=== PATIENT | female | born 1940 | race Caucasian/White ===

== ENCOUNTER 2017-07-18 04:40 | Emergency (ER) | payer MEDICARE, MEDICAID ==
[~2017-07-18] VITALS: Ht 165.1 cm; Wt 72.6 kg
[2017-07-18 04:40] VITALS: BP_SYST 151
[~2017-07-18 04:40] MED LIST: COREG; CRESTOR; DIOVAN; JANUMET; METFORMIN; METHOTREXATE; WARFARIN; ZETIA
--- NOTE | 2017-07-18 04:40 | NUR ---
Patient to ER bed 7 to gown for evaluation. Side rails up. Report given to ALBINA SADLER.
--- NOTE | 2017-07-18 04:42 | NUR ---
Pt states having headache for approximately 5 days prior to ER visit, states having dizziness for approximately 2 days prior to ER visit. Pt denies any head injury, denies SOB at this time. Pt denies double vision at this time. Eyes PERRL bilaterally. Pt denies any other complaints.
--- NOTE | 2017-07-18 04:50 | NUR ---
ER Dr. Villasenor at bedside examining patient.
[2017-07-18] MEDS ORDERED: ACETAMINOPHEN 500 MG TABLET PO ONE (05:00)
[2017-07-18] MEDS ORDERED: KETOROLAC TROMETHAMINE 30 MG VIAL IVP ONE (05:15)
[2017-07-18 05:28] LABS: HEMATOCRIT 38.8 % (36-48); HEMOGLOBIN 12.7 g/dL (12.0-16.0); RED BLOOD CELL COUNT(AUTO) 4.28 MIL/uL (4.2-6.2); WHITE BLOOD COUNT (AUTO) 8.9 K/uL (4.8-10.8)
[2017-07-18 05:29] LABS: BASOPHILS % (AUTO) 0.9 % (0.0-2.0); EOSINOPHILS % (AUTO) 0.1 % (0.0-4.0); LYMPHOCYTES # (AUTO) 2.4 K/uL (1.0-5.5); LYMPHOCYTES % (AUTO) 27.4 % (20.5-51.5); MEAN CORPUSCULAR HEMOGLOBIN 30 pg (27-31); MEAN CORPUSCULAR HGB CONC 33 % (32-36); MEAN CORPUSCULAR VOLUME 91 fL (79.0-98.0); MONOCYTES # (AUTO) 0.4 K/uL (0.0-1.0); MONOCYTES % (AUTO) 4.8 % (1.7-9.3); NEUTROPHILS % (AUTO) 66.8 % (40.0-70.0); PLATELET COUNT (AUTO) 174 K/uL (130-430); RED CELL DISTRIBUTION WIDTH 14.6 % (9.0-15.0)
[2017-07-18 05:30] LABS: BASOPHILS # (AUTO) 0.1 K/uL (0.0-0.2)
[2017-07-18 05:51] LABS: CALCIUM 8.5 mg/dL (8.4-11.0); POTASSIUM 4.5 mmol/L (3.5-5.1)
[2017-07-18 05:53] LABS: TOTAL BILIRUBIN 0.7 mg/dL (0.0-1.0)
--- NOTE | 2017-07-18 06:30 | NUR ---
Patient stable, no signs of distress noted. Vital signs within therapeutic range. Will continue to monitor.
[2017-07-18 06:51] LABS: ALANINE AMINOTRANSFERASE 16 U/L (12-78); ALBUMIN 3.6 g/dL (3.4-4.8); ASPARTATE AMINOTRANSFERASE 20 U/L (10-37); CHLORIDE 103 mmol/L (98-107); CREATININE 0.86 mg/dL (0.55-1.30); GLUCOSE 121 mg/dL (70-99); UREA NITROGEN, BLOOD 21 mg/dL (8-21)
--- NOTE | 2017-07-18 06:52 | NUR ---
Patient states she will call sister in law for transport home. Pt states she will wait in waiting room after discharge. Pt stable, no signs of distress noted. Patient ambulatory with cane and with steady gait.
[2017-07-18 06:53] VITALS: BP_SYST 122
--- NOTE | 2017-07-18 06:53 | NUR ---
Patient given written and verbal discharge instructions and verbalizes understanding. ER MD discussed with patient the results and treatment provided. Patient in stable condition. ID arm band removed. IV catheter removed intact and dressing applied, no active bleeding. Rx of Motrin given. Patient educated on pain management and to follow up with PMD. Pain Scale 0/10. Opportunity for questions provided and answered.
[2017-07-18 06:55] LABS: ANION GAP 7 (5-15); SODIUM SERUM 135 mmol/L (136-145)
== END 2017-07-18 06:53 | disposition home or self-care (01) ==
LOC: SED 04:40
DX: R51 Headache (principal); R42 Dizziness and giddiness; I10 Essential (primary) hypertension; E11.9 Type 2 diabetes mellitus without complications; I48.91 Unspecified atrial fibrillation; Z95.0 Presence of cardiac pacemaker
CPT/HCPCS: 36415; 70450; 80053; 85025; 96374; 99285; J1885

== ENCOUNTER 2021-05-23 08:59 | Outpatient (CLI) | payer MEDICARE, MEDICAID | END 2021-05-23 20:37 | disposition home or self-care (01) | LOC: SUS 08:59 | PROVIDERS: ATTEND Family Medicine | DX: I12.9 Hypertensive chronic kidney disease with stage 1 through stage 4 chronic kidney disease, or unspecified chronic kidney disease (principal); N18.30 Chronic kidney disease, stage 3 unspecified; R80.9 Proteinuria, unspecified | CPT/HCPCS: 72072-TC; 76770 ==

== ENCOUNTER 2022-07-29 08:32 | Outpatient (CLI) | payer MEDICARE, MEDICAID | END 2022-07-29 20:39 | disposition home or self-care (01) | LOC: SUS 08:32 | PROVIDERS: ATTEND Family Medicine | DX: R06.02 Shortness of breath (principal); J20.9 Acute bronchitis, unspecified; I70.0 Atherosclerosis of aorta; I65.21 Occlusion and stenosis of right carotid artery; R10.9 Unspecified abdominal pain; Z95.0 Presence of cardiac pacemaker | CPT/HCPCS: 71046-TC ==

== ENCOUNTER 2022-08-03 13:58 | Inpatient (IN) | payer MEDICAID, MEDICARE ==
[~2022-08-03] VITALS: Ht 167.6 cm; Wt 72.6 kg
[2022-08-03 14:02] VITALS: BP_SYST 140
[2022-08-03 16:30] LABS: BILIRUBIN,URINE NEGATIVE (NEGATIVE); CLARITY/URINE SL CLOUDY (CLEAR); COLOR,URINE YELLOW (YELLOW); GLUCOSE,URINE NEGATIVE (NEGATIVE); KETONES,URINE NEGATIVE (NEGATIVE); LEUKOCYTE ESTERASE ,URINE 2+ (NEGATIVE); NITRITE, URINE POSITIVE (NEGATIVE); PH,URINE 5.5 (5.0-8.0); PROTEIN URINE NEGATIVE (NEGATIVE); UROBILINOGEN,URINE 0.2 (0.2-1.0)
[2022-08-03 16:39] LABS: BLOOD, URINE TRACE (NEGATIVE)
[2022-08-03 16:52] LABS: HEMATOCRIT 34.9 % (36-48); HEMOGLOBIN 11.3 g/dL (12.0-16.0); MEAN CORPUSCULAR HEMOGLOBIN 29 pg (27-31); MEAN CORPUSCULAR HGB CONC 33 % (32-36); MEAN CORPUSCULAR VOLUME 89 fL (79.0-98.0); PLATELET COUNT (AUTO) 164 K/uL (130-430); RED CELL DISTRIBUTION WIDTH 15.5 % (9.0-15.0); WHITE BLOOD COUNT (AUTO) 10.8 K/uL (4.8-10.8)
[2022-08-03 16:52] LABS: BACTERIA,URINE MANY /HPF (None Seen); MUCUS,URINE None Seen /LPF (None Seen); RBC,URINE 0-3 /HPF (0-3); WBC,URINE 50-80 /HPF (0-3)
[2022-08-03 17:12] LABS: ANION GAP 10 (5-15); CHLORIDE 114 mmol/L (98-107); CREATININE 0.62 mg/dL (0.55-1.30); GLUCOSE 83 mg/dL (70-99); SODIUM SERUM 145 mmol/L (136-145); UREA NITROGEN, BLOOD 18 mg/dL (8-21)
[2022-08-03 17:14] LABS: BAND % (MANUAL) 0 % (0-6); BASOPHILS % (MANUAL) 0 % (0-2); EOSINOPHILS % (MANUAL) 1 % (0-7); MONOCYTES % (MANUAL) 5 % (0-11)
[2022-08-03 17:16] LABS: LYMPHOCYTES % (MANUAL) 51 % (20-46)
[2022-08-03 17:17] LABS: ALANINE AMINOTRANSFERASE 24 U/L (12-78); ALBUMIN 2.2 g/dL (3.4-4.8); ASPARTATE AMINOTRANSFERASE 19 U/L (10-37); TOTAL BILIRUBIN 0.3 mg/dL (0.0-1.0)
[2022-08-03 17:25] LABS: POTASSIUM 2.9 mmol/L (3.5-5.1)
[2022-08-03 17:26] LABS: CALCIUM 6.3 mg/dL (8.4-11.0)
[2022-08-03] MEDS ORDERED: KCL 20 mEq in 100 mL (PREMIX) 100 ML IV ONE (18:15)
[2022-08-03] MEDS ORDERED: CALCIUM GLUCONATE 1 GM in NS 100 ML IV ONE (18:15)
[2022-08-03] MEDS ORDERED: PROP60CA40 PO (18:20)
[2022-08-03] MEDS ORDERED: AMIO200T66 PO (18:20)
[2022-08-03] MEDS ORDERED: VALS160T2 PO (18:21)
[2022-08-03] MEDS ORDERED: APIX5TAB PO (18:24)
[2022-08-03] MEDS ORDERED: SERT-436 PO (18:24)
[2022-08-03] MEDS ORDERED: ROSU20TA2 PO (18:26)
[2022-08-03] MEDS ORDERED: PRIM50TA27 PO (18:26)
[2022-08-03] MEDS ORDERED: PRED5TAB PO (18:27)
[2022-08-03] MEDS ORDERED: HYDR200T80 PO (18:28)
[2022-08-03] MEDS ORDERED: VITD400 PO (18:28)
[2022-08-03] MEDS ORDERED: VITD2000 PO (18:29)
[2022-08-03] MEDS ORDERED: POTASSIUM CHLORIDE 20 MEQ TAB.PRT.SR PO PRN (18:30)
[2022-08-03] MEDS ORDERED: DEXTROSE 50% JECT 50 ML DISP.SYRIN IVP PRN (18:30)
[2022-08-03] MEDS ORDERED: ACETAMINOPHEN 325 MG TABLET PO PRN (18:30)
[2022-08-03] MEDS ORDERED: MAGNESIUM SULFATE 50 ML IV PRN (18:30)
[2022-08-03] MEDS ORDERED: DOCUSATE SODIUM 100 MG CAPSULE PO PRN (18:30)
[2022-08-03] MEDS ORDERED: POTASSIUM CHLORIDE 20 MEQ TAB.PRT.SR PO ONE (18:30)
[2022-08-03] MEDS ORDERED: MORPHINE 2 MG/ML INJ. SYRINGE IVP PRN ×2 (18:30)
[2022-08-03] MEDS ORDERED: MUPIROCIN 2% TOPICAL OINTMENT 22 GM NS PRN (18:30)
[2022-08-03] MEDS ORDERED: ONDANSETRON HCL 4 MG/2 ML VIAL IVP PRN (18:30)
[2022-08-03] MEDS ORDERED: cefTRIAXone 1 GM in D5W 50 ML IV ONE (18:30)
[2022-08-03] MEDS ORDERED: ZOLPIDEM TARTRATE 5 MG TABLET PO PRN (18:30)
[2022-08-03] MEDS ORDERED: LORazepam 1 MG TABLET PO PRN (18:45)
[2022-08-03] MEDS ORDERED: FUROSEMIDE 40 MG/4 ML VIAL IVP ONE (19:15)
[2022-08-03] MEDS ORDERED: cefTRIAXone 1 GM VIAL ONE ×2 (19:43→23:09)
[2022-08-03] MEDS ORDERED: CALCIUM GLUCONATE 1 GM/10 ML VIAL ONE (19:43)
[2022-08-03] MEDS ORDERED: FUROSEMIDE 40 MG/4 ML VIAL ONE (20:08)
[2022-08-03 22:16] VITALS: BP_SYST 135
[2022-08-03] MEDS: APIXABAN 2.5 MG TABLET PO SCH (23:04)
[2022-08-04 05:16] VITALS: BP_SYST 135
[2022-08-04 06:47] LABS: BASOPHILS % (AUTO) 0.3 % (0.0-2.0); EOSINOPHILS # (AUTO) 0.1 K/uL (0.0-0.4); EOSINOPHILS % (AUTO) 1.2 % (0.0-4.0); HEMATOCRIT 34.2 % (36-48); HEMOGLOBIN 11.4 g/dL (12.0-16.0); LYMPHOCYTES # (AUTO) 5.2 K/uL (1.0-5.5); LYMPHOCYTES % (AUTO) 52.9 % (20.5-51.5); MEAN CORPUSCULAR HEMOGLOBIN 30 pg (27-31); MEAN CORPUSCULAR HGB CONC 33 % (32-36); MEAN CORPUSCULAR VOLUME 89 fL (79.0-98.0); MONOCYTES # (AUTO) 0.5 K/uL (0.0-1.0); MONOCYTES % (AUTO) 5.4 % (1.7-9.3); NEUTROPHILS % (AUTO) 40.2 % (40.0-70.0); PLATELET COUNT (AUTO) 155 K/uL (130-430); RED BLOOD CELL COUNT(AUTO) 3.84 MIL/uL (4.2-6.2); RED CELL DISTRIBUTION WIDTH 15.2 % (9.0-15.0); WHITE BLOOD COUNT (AUTO) 9.9 K/uL (4.8-10.8)
[2022-08-04 06:56] LABS: ANION GAP 6 (5-15); CALCIUM 8.6 mg/dL (8.4-11.0); CHLORIDE 105 mmol/L (98-107); CREATININE 0.96 mg/dL (0.55-1.30); GLUCOSE 118 mg/dL (70-99); POTASSIUM 3.8 mmol/L (3.5-5.1); SODIUM SERUM 141 mmol/L (136-145); UREA NITROGEN, BLOOD 20 mg/dL (8-21)
[2022-08-04 08:00] VITALS: BP_SYST 129
[2022-08-04] MEDS ORDERED: AMIODARONE HCL 200 MG TABLET PO ONE (09:00)
[2022-08-04] MEDS ORDERED: FUROSEMIDE 40 MG TABLET PO ONE (09:00)
[2022-08-04] MEDS ORDERED: FUROSEMIDE 40 MG/4 ML VIAL IVP SCH (09:00)
[2022-08-04] MEDS: PROPRANOLOL HCL (INDERAL LA 60MG) PO SCH (09:00)
[2022-08-04] MEDS ORDERED: AMIODARONE HCL 200 MG TABLET PO SCH (09:00)
[2022-08-04] MEDS: ATORVASTATIN 20 MG TABLET PO SCH (09:47)
[2022-08-04] MEDS: APIXABAN 2.5 MG TABLET PO SCH ×2 (09:54→21:37)
[2022-08-04 12:00] VITALS: BP_SYST 128
[2022-08-04] MEDS: INSULIN LISPRO SLIDING SCALE 100 UNITS/ML VIAL (humaLOG) SUBCUT PRN (13:16)
[2022-08-04 16:00] VITALS: BP_SYST 131
[2022-08-04] MEDS ORDERED: cefTRIAXone 1 GM IVPB PREMIX 50 ML IV SCH ×2 (18:00)
[2022-08-04 20:00] VITALS: BP_SYST 136
[2022-08-04] MEDS ORDERED: PRIMIDONE 250 MG TABLET PO SCH (21:00)
[2022-08-05] VITALS: BP_SYST 127
[2022-08-05 07:02] LABS: BASOPHILS % (AUTO) 0.3 % (0.0-2.0); EOSINOPHILS # (AUTO) 0.1 K/uL (0.0-0.4); EOSINOPHILS % (AUTO) 1.1 % (0.0-4.0); HEMATOCRIT 36.3 % (36-48); HEMOGLOBIN 12.2 g/dL (12.0-16.0); LYMPHOCYTES # (AUTO) 4.5 K/uL (1.0-5.5); LYMPHOCYTES % (AUTO) 46.6 % (20.5-51.5); MEAN CORPUSCULAR HEMOGLOBIN 30 pg (27-31); MEAN CORPUSCULAR HGB CONC 34 % (32-36); MEAN CORPUSCULAR VOLUME 89 fL (79.0-98.0); MONOCYTES # (AUTO) 0.5 K/uL (0.0-1.0); MONOCYTES % (AUTO) 5.4 % (1.7-9.3); NEUTROPHILS # (AUTO) 4.5 K/uL (1.8-7.7); NEUTROPHILS % (AUTO) 46.6 % (40.0-70.0); PLATELET COUNT (AUTO) 162 K/uL (130-430); RED CELL DISTRIBUTION WIDTH 15.6 % (9.0-15.0); WHITE BLOOD COUNT (AUTO) 9.7 K/uL (4.8-10.8)
[2022-08-05 07:12] LABS: ALANINE AMINOTRANSFERASE 27 U/L (12-78); ALBUMIN 2.9 g/dL (3.4-4.8); ANION GAP 7 (5-15); ASPARTATE AMINOTRANSFERASE 29 U/L (10-37); CALCIUM 8.5 mg/dL (8.4-11.0); CHLORIDE 104 mmol/L (98-107); CREATININE 0.96 mg/dL (0.55-1.30); GLUCOSE 132 mg/dL (70-99); POTASSIUM 3.5 mmol/L (3.5-5.1); SODIUM SERUM 141 mmol/L (136-145); THYROID STIMULATING HORMONE 3.16 uIu/mL (0.36-3.74); TOTAL BILIRUBIN 0.4 mg/dL (0.0-1.0); UREA NITROGEN, BLOOD 20 mg/dL (8-21)
[2022-08-05 08:00] VITALS: BP_SYST 122
[2022-08-05] MEDS ORDERED: FUROSEMIDE 40 MG TABLET PO SCH (09:00)
[2022-08-05] MEDS ORDERED: AMIODARONE HCL 200 MG TABLET PO SCH (09:00)
[2022-08-05] MEDS: PROPRANOLOL HCL (INDERAL LA 60MG) PO SCH (09:00)
[2022-08-05] MEDS ORDERED: predniSONE 5 MG TABLET PO SCH (09:00)
[2022-08-05] MEDS: ATORVASTATIN 20 MG TABLET PO SCH (09:04)
[2022-08-05] MEDS: APIXABAN 2.5 MG TABLET PO SCH (09:06)
[2022-08-05 10:55] LABS: TRIGLYCERIDES 64 mg/dL (30-150)
[2022-08-05 10:56] LABS: CHOLESTEROL 150 mg/dL (<200); HDL CHOLESTEROL 81 mg/dL (>55); LDL CHOLESTEROL 63 mg/dL (<100)
[2022-08-05] MEDS ORDERED: NITR-85 PO (11:29)
[2022-08-05] MEDS ORDERED: FAMO20TA8 PO (11:29)
[2022-08-05] MEDS ORDERED: APIX2.5T PO (11:30)
[2022-08-05] MEDS ORDERED: FURO-150 PO (11:31)
[2022-08-05 11:43] VITALS: BP_SYST 136
[2022-08-05 11:45] VITALS: BP_SYST 116
[2022-08-05 11:51] VITALS: BP_SYST 136
[2022-08-05] MEDS: INSULIN LISPRO SLIDING SCALE 100 UNITS/ML VIAL (humaLOG) SUBCUT PRN (12:42)
[2022-08-06] MEDS ORDERED: FUROSEMIDE 40 MG TABLET PO SCH (09:00)
== END 2022-08-05 14:00 | disposition home or self-care (01) | DRG 194 ==
LOC: SED 16:39 → STU 18:25 → SMU 08-04 03:59 → STU 08-04 23:23
PROVIDERS: ADMIT Family Medicine; ATTEND Family Medicine
DX: I11.0 Hypertensive heart disease with heart failure (principal); J96.01 Acute respiratory failure with hypoxia; E44.0 Moderate protein-calorie malnutrition; E83.51 Hypocalcemia; D64.9 Anemia, unspecified; E78.5 Hyperlipidemia, unspecified; E11.9 Type 2 diabetes mellitus without complications; I48.0 Paroxysmal atrial fibrillation; Z79.01 Long term (current) use of anticoagulants; I50.21 Acute systolic (congestive) heart failure; N39.0 Urinary tract infection, site not specified; E87.6 Hypokalemia; M06.9 Rheumatoid arthritis, unspecified; M19.90 Unspecified osteoarthritis, unspecified site; Z20.822 Contact with and (suspected) exposure to COVID-19; Z96.642 Presence of left artificial hip joint; Z74.01 Bed confinement status; Z90.49 Acquired absence of other specified parts of digestive tract; Z95.0 Presence of cardiac pacemaker; Z99.3 Dependence on wheelchair; Z79.899 Other long term (current) drug therapy
CPT/HCPCS: 36415; 71045; 71250-TC; 76376; 80048; 80053; 80061; 81000; 82962; 83036; 83605; 83735; 83880; 84443; 84484; 85007; 85025; 85027; 87040; 87086; 93005; 93306; 96365; 99285; G0378; J0610; J0696; J1940; J3480; J7512

== ENCOUNTER 2022-09-04 03:18 | Inpatient (IN) | payer MEDICAID, MEDICARE ==
[~2022-09-04] VITALS: Ht 152.4 cm; Wt 66.7 kg
[2022-09-04] VITALS (7 sets, daily range): BP systolic 114–131
[~2022-09-04 03:18] MED LIST changes: +AMIO200T66 PO; +APIX2.5T PO; -COREG; -CRESTOR; -DIOVAN; +FAMO20TA8 PO; +FURO-150 PO; +HYDR200T80 PO; -JANUMET; -METFORMIN; -METHOTREXATE; +NITR-85 PO; +PRIM50TA27 PO; +PROP60CA40 PO; +ROSU20TA2 PO; +SERT-436 PO; +VITD400 PO; -WARFARIN; -ZETIA
--- NOTE | 2022-09-04 03:25 | NUR ---
PT BIB BLS TRANSPORT C/O SOB, MILD ABDOMINAL PAIN LAST NIGHT. PER REPORT PT IS HAVING FLU LIKE STMPTOMS X1 WK. COUGH MEDICATION WAS GIVEN EARLIER LAST NIGHT. PMH;HTN,DM,PACEMAKER, LT HIP SURGERY
--- NOTE | 2022-09-04 03:50 | NUR ---
Placed in room 3 . Placed on pvc monitor, blood pressure machine and pulse oximeter. To gown for exam. Side rails up. Report given to Gill SADLER.
--- NOTE | 2022-09-04 04:00 | NUR ---
RAD at bedside for imaging.
--- NOTE | 2022-09-04 05:00 | NUR ---
ER at bedside examining patient.
--- NOTE | 2022-09-04 05:04 | NUR ---
Covid/Influenza swabs collected and sent to lab.
[2022-09-04 05:11] LABS: ANION GAP 7 (5-15); CALCIUM 7.7 mg/dL (8.4-11.0); CHLORIDE 105 mmol/L (98-107); CREATININE 0.96 mg/dL (0.55-1.30); GLUCOSE 123 mg/dL (70-99); POTASSIUM 3.7 mmol/L (3.5-5.1); UREA NITROGEN, BLOOD 17 mg/dL (8-21)
[2022-09-04 05:19] LABS: ALANINE AMINOTRANSFERASE 22 U/L (12-78); ALBUMIN 2.9 g/dL (3.4-4.8); ASPARTATE AMINOTRANSFERASE 24 U/L (10-37); TOTAL BILIRUBIN 0.3 mg/dL (0.0-1.0)
[2022-09-04] MEDS ORDERED: FUROSEMIDE 40 MG/4 ML VIAL IVP ONE (05:30)
[2022-09-04] MEDS ORDERED: NITROGLYCERIN 1 INCH (GM) OINT. TP ONE (05:30)
[2022-09-04] MEDS ORDERED: cefTRIAXone 1 GM in D5W 50 ML IV ONE (05:30)
[2022-09-04] MEDS ORDERED: DOXYCYCLINE HYCLATE 100 MG in D5W 100 ML IV ONE (05:30)
[2022-09-04] MEDS ORDERED: DOXYCYCLINE HYCLATE 100 MG VIAL IV ONE (05:35)
[2022-09-04] MEDS ORDERED: cefTRIAXone 1 GM VIAL ONE (05:35)
--- NOTE | 2022-09-04 05:38 | NUR ---
Admit bed requested Patient will be admitted to care of Alex Torres Admitted to TELE unit. Diagnosis CHF EXACERBATION Inpatient (Yes or No) YES Observation (Yes or No) NO Orientation concerns or request close to nursing station (Yes or No) NO Covid Status PENDING On vent or bipap NO Isolation requirements NO Needs a sitter NO From Home (Yes or if No enter name of facility) YES Requires Dialysis (Yes or No) NO Med Rec Completed (Yes of No) PENDING
[2022-09-04 05:53] LABS: CORRECTED WHITE BLOOD COUNT 9.7 K/uL (4.5-11.0); HEMATOCRIT 33.2 % (36-48); HEMOGLOBIN 11.2 g/dL (12.0-16.0); RED BLOOD CELL COUNT(AUTO) 3.78 MIL/uL (4.2-6.2); WHITE BLOOD COUNT (AUTO) 9.7 K/uL (4.8-10.8)
[2022-09-04 05:54] LABS: BASOPHILS % (AUTO) 0.5 % (0.0-2.0); EOSINOPHILS % (AUTO) 1.2 % (0.0-4.0); LYMPHOCYTES # (AUTO) 4.8 K/uL (1.0-5.5); LYMPHOCYTES % (AUTO) 49.4 % (20.5-51.5); MEAN CORPUSCULAR HEMOGLOBIN 30 pg (27-31); MEAN CORPUSCULAR HGB CONC 34 % (32-36); MEAN CORPUSCULAR VOLUME 88 fL (79.0-98.0); MONOCYTES % (AUTO) 4.6 % (1.7-9.3); NEUTROPHILS # (AUTO) 4.3 K/uL (1.8-7.7); NEUTROPHILS % (AUTO) 44.3 % (40.0-70.0); PLATELET COUNT (AUTO) 152 K/uL (130-430); RED CELL DISTRIBUTION WIDTH 15.3 % (9.0-15.0)
[2022-09-04 05:55] LABS: BASOPHILS # (AUTO) 0.1 K/uL (0.0-0.2); EOSINOPHILS # (AUTO) 0.1 K/uL (0.0-0.4); MONOCYTES # (AUTO) 0.4 K/uL (0.0-1.0)
--- NOTE | 2022-09-04 06:01 | NUR ---
# 22 gauge angiocath placed to R AC. Use of asceptic technique. Opsite placed over site. Blood return noted. Flushed with 10 cc of normal saline. No evidence of infiltration noted. Patient tolerated well.
[2022-09-04] MEDS ORDERED: D5/0.45 NS 1,000 ML IV SCH (06:45)
--- NOTE | 2022-09-04 07:25 | NUR ---
Opening Note: Report rcvd from outgoing NOC RN, all cares assumed.
--- NOTE | 2022-09-04 07:49 | NUR ---
Patient stable in no acute distress and or discomfort, bed low and locked for safety.
--- NOTE | 2022-09-04 08:12 | NUR ---
Patient will be admitted to care of Dr. Alonso. Admitted to Tele unit. Will go to room 110B. Belongings list completed. Complete and up to date summary report printed. SBAR report to be given at bedside with opportunity for questions.
--- NOTE | 2022-09-04 08:25 | NUR ---
Patient transferred to unit in stable condition.
--- NOTE | 2022-09-04 08:26 | NUR ---
CONSULTATION PAGED REASON FOR CONSULTATION:CHF WAS CONSULT CALLED?Y PERSON WHO WAS NOTIFIED:RUBIO CONSULTING PHYSICIAN:ALCIDES DAVIDSON PRESSED OR BLOWN GLASS WORKER SPECIALTY:CARDIO PRESSED OR BLOWN GLASS WORKER PHONE NUMBER:[phone] REQUESTING PHYSICIAN:DR.[facility]
--- NOTE | 2022-09-04 08:44 | NUR ---
Scheduled IVP medication given per order. Patient stable at this time.
[2022-09-04] MEDS ORDERED: FUROSEMIDE 40 MG/4 ML VIAL IVP SCH (09:00)
--- NOTE | 2022-09-04 09:10 | NUR ---
Patient stable; resting comfortably in bed with Dr. Reyes at bedside.
[2022-09-04] MEDS ORDERED: MAGNESIUM SULFATE 50 ML IV PRN (09:15)
[2022-09-04] MEDS ORDERED: ZOLPIDEM TARTRATE 5 MG TABLET PO PRN (09:15)
[2022-09-04] MEDS ORDERED: NALOXONE HCL 0.4 MG/ML AMP (NARCAN) IVP PRN ×2 (09:15)
[2022-09-04] MEDS ORDERED: LORazepam 2 MG/ML VIAL IVP PRN (09:15)
[2022-09-04] MEDS ORDERED: DOCUSATE SODIUM 100 MG CAPSULE PO PRN (09:15)
[2022-09-04] MEDS ORDERED: POTASSIUM CHLORIDE 20 MEQ TAB.PRT.SR PO PRN (09:15)
[2022-09-04] MEDS ORDERED: MUPIROCIN 2% TOPICAL OINTMENT 22 GM NS PRN (09:15)
[2022-09-04] MEDS ORDERED: ACETAMINOPHEN 325 MG TABLET PO PRN (09:15)
[2022-09-04] MEDS ORDERED: ONDANSETRON HCL 4 MG/2 ML VIAL IVP PRN (09:15)
[2022-09-04] MEDS ORDERED: MORPHINE 2 MG/ML INJ. SYRINGE IVP PRN ×2 (09:15)
--- NOTE | 2022-09-04 09:17 | NUR ---
Patient resting comfortably in bed with Dr. Oliveira at bedside.
--- NOTE | 2022-09-04 09:31 | NUR ---
CONSULTATION PAGED REASON FOR CONSULTATION:SEVERE EPIGASTRIC PAIN WAS CONSULT CALLED?Y PERSON WHO WAS NOTIFIED:[employer] CONSULTING PHYSICIAN:ANITA MUNIZ WEIGHT INSPECTOR SPECIALTY:GI WEIGHT INSPECTOR PHONE NUMBER:[phone] REQUESTING PHYSICIAN:DR.[facility]ARGAVI
[2022-09-04] MEDS: METOCLOPRAMIDE HCL 10 MG/2 ML VIAL IVP SCH ×2 (11:34→17:38)
--- NOTE | 2022-09-04 11:34 | NUR ---
Scheduled medication given per order. Patient stable with daughter at bedside.
[2022-09-04] MEDS ORDERED: VITD2000 PO (13:42)
[2022-09-04] MEDS ORDERED: VALS160T2 PO (13:44)
[2022-09-04] MEDS ORDERED: PRED2.5T4 PO (13:45)
[2022-09-04] MEDS ORDERED: PRIM50TA27 PO (13:45)
[2022-09-04] MEDS ORDERED: MULT-1117 PO (13:45)
--- NOTE | 2022-09-04 13:45 | NUR ---
Patient stable; resting comfortably in bed with daughter at bedside.
[2022-09-04] MEDS ORDERED: APIX5TAB4 PO (13:46)
--- NOTE | 2022-09-04 16:05 | NUR ---
Patient stable; asleep at this time.
[2022-09-04] MEDS: SERTRALINE HCL 50 MG TABLET PO SCH (17:37)
[2022-09-04] MEDS: PRIMIDONE 50 MG TABLET PO SCH (17:37)
--- NOTE | 2022-09-04 17:38 | NUR ---
Scheduled medications given per order. Patient eating dinner at this time.
--- NOTE | 2022-09-04 18:50 | NUR ---
Patient resting in bed with no distress noted and family member at bedside. Patient stable throughout shift.
--- NOTE | 2022-09-04 19:15 | NUR ---
change of shift.pt.presents quiescent affect;calm,resting.no c/o pain,nausea.pt.presents iv access location rt.wrist intact. iv lock.general status stable.respiratory status stable;unlabored@room air.call light/telephone w/in access of the pt.
--- NOTE | 2022-09-04 20:00 | NUR ---
pt.assessed.v/s assessed values wnl.no c/o pain,nausea.pt.apprised that snacks/beverages are available w/in the shift. no requests posited@this hour.pt.assessed for cleanliness.pt.repositioned.call light/telephone placed w/in access of the pt.
[2022-09-04] MEDS: FUROSEMIDE 20 MG/2 ML VIAL IVP SCH (20:17)
[2022-09-04] MEDS: AMIODARONE HCL 200 MG TABLET PO SCH (20:18)
[2022-09-04] MEDS ORDERED: APIXABAN 2.5 MG TABLET PO SCH (21:00)
--- NOTE | 2022-09-04 21:00 | NUR ---
2100p medications administered.pt.capable to ingest the po medications w/out difficulty.no c/o pain,nausea.no requests posited@this hour.call light/telephone w/in access of the pt.
--- NOTE | 2022-09-04 22:00 | NUR ---
pt.assessed.pt.quiescent.no c/o pain,nausea.no requests posited@this hour.pt.repositioned.call light/telephone placed w/in access of the pt.
--- NOTE | 2022-09-05 | NUR ---
pt.assessed.v/s assessed values wnl.no c/o pain,nausea.no requests posited@this hour.pt.repositioned.call light/telephone placed w/in access of the pt.
--- NOTE | 2022-09-05 01:00 | NUR ---
reglan;ivp administered.iv access intact;patent.
[2022-09-05 01:06] VITALS: BP_SYST 117
[2022-09-05] MEDS: METOCLOPRAMIDE HCL 10 MG/2 ML VIAL IVP SCH ×2 (01:30→09:31)
--- NOTE | 2022-09-05 02:00 | NUR ---
pt.assessed.pt.quiescent.per flacc pain mgx pt.absent facial grimaces/body posturing.pt.repositioned.call light/telephone placed w/in access of the pt.
--- NOTE | 2022-09-05 04:00 | NUR ---
pt.assessed.pt.quiescent.per flacc pain mgx pt.absent facial grimaces/body posturing.pt.assessed for cleanliness. pt.repositioned.call light/telephone placed w/in access of the pt.
[2022-09-05] MEDS ORDERED: cefTRIAXone 1 GM in D5W 50 ML IV SCH (06:00)
[2022-09-05] MEDS: PRIMIDONE 50 MG TABLET PO SCH ×2 (06:14→12:00)
--- NOTE | 2022-09-05 06:27 | NUR ---
pt.assessed,pt.quiescent.per flacc pain mgx pt.absent facial grimaces/body posturing.pt.repositioned.0700a myosline administered.pt.weighed 2/t chf/lasix hx.call light/telephone placed w/in access of the pt.
[2022-09-05 06:45] LABS: BASOPHILS % (AUTO) 0.4 % (0.0-2.0); EOSINOPHILS # (AUTO) 0.1 K/uL (0.0-0.4); EOSINOPHILS % (AUTO) 1.1 % (0.0-4.0); HEMATOCRIT 34.5 % (36-48); HEMOGLOBIN 11.7 g/dL (12.0-16.0); LYMPHOCYTES # (AUTO) 4.3 K/uL (1.0-5.5); LYMPHOCYTES % (AUTO) 56.7 % (20.5-51.5); MEAN CORPUSCULAR HEMOGLOBIN 30 pg (27-31); MEAN CORPUSCULAR HGB CONC 34 % (32-36); MEAN CORPUSCULAR VOLUME 87 fL (79.0-98.0); MONOCYTES # (AUTO) 0.4 K/uL (0.0-1.0); MONOCYTES % (AUTO) 5.9 % (1.7-9.3); NEUTROPHILS # (AUTO) 2.7 K/uL (1.8-7.7); NEUTROPHILS % (AUTO) 35.9 % (40.0-70.0); PLATELET COUNT (AUTO) 143 K/uL (130-430); RED BLOOD CELL COUNT(AUTO) 3.94 MIL/uL (4.2-6.2); RED CELL DISTRIBUTION WIDTH 15.2 % (9.0-15.0); WHITE BLOOD COUNT (AUTO) 7.6 K/uL (4.8-10.8)
[2022-09-05 07:47] LABS: ANION GAP 8 (5-15); CALCIUM 7.5 mg/dL (8.4-11.0); CHLORIDE 103 mmol/L (98-107); CREATININE 0.95 mg/dL (0.55-1.30); GLUCOSE 118 mg/dL (70-99); POTASSIUM 3.5 mmol/L (3.5-5.1); UREA NITROGEN, BLOOD 20 mg/dL (8-21)
[2022-09-05 08:09] VITALS: BP_SYST 113
[2022-09-05] MEDS ORDERED: FUROSEMIDE 20 MG TABLET PO SCH (09:00)
[2022-09-05] MEDS ORDERED: ROSUVASTATIN CALCIUM 5 MG/TAB (CRESTOR) PO SCH (09:00)
[2022-09-05] MEDS: ATORVASTATIN 20 MG TABLET PO SCH (09:19)
[2022-09-05] MEDS: AMIODARONE HCL 200 MG TABLET PO SCH ×2 (09:20→21:00)
[2022-09-05] MEDS: PROPRANOLOL HCL (INDERAL LA 60MG) PO SCH (09:21)
[2022-09-05] MEDS: HYDROXYCHLOROQUINE SULFATE 200 MG TABLET PO SCH (09:21)
[2022-09-05] MEDS: FUROSEMIDE 20 MG/2 ML VIAL IVP SCH ×2 (09:22→21:00)
--- NOTE | 2022-09-05 10:00 | NUR ---
pt kept npo for gastric emptying study.
[2022-09-05 11:26] VITALS: BP_SYST 115
--- NOTE | 2022-09-05 13:00 | NUR ---
Pt still npo for gastric emptying studies.
[2022-09-05 15:28] VITALS: BP_SYST 122
--- NOTE | 2022-09-05 16:27 | NUR ---
Dietitian Recommendations * Consider resuming Cardiac diet w/ Ensure Enlive BID (ONS yields 700 kcal/day, 40 gm protein/day) if/when medically appropriate LP, MS, RD Please refer to Nutrition Assessment for details. Addendum: 09/05/22 at [address] Amended: Links added.
--- NOTE | 2022-09-05 16:37 | NUR ---
pt resting in bed, pt said she is ready for the test.
--- NOTE | 2022-09-05 18:20 | NUR ---
pt is off unit, still in NM.
--- NOTE | 2022-09-05 18:51 | NUR ---
pt is off unit, still in NM.
[2022-09-06 00:18] VITALS: BP_SYST 126
--- NOTE | 2022-09-06 07:30 | NUR ---
OPENING NOTE: PATIENT RESTING IN BED. BREATHING EVEN AND UNLABORED TO O2 AT 2L/NC. DENIES ANY DISCOMFORT AT THIS TIME. FALL AND SAFETY MEASURES REINFORCED. BED LOCKED, ALARM AND IN LOWEST POSITION. CALL LIGHT WITHIN REACH.
[2022-09-06] MEDS: PRIMIDONE 50 MG TABLET PO SCH ×3 (08:07→18:00)
[2022-09-06 08:29] LABS: BASOPHILS % (AUTO) 0.5 % (0.0-2.0); EOSINOPHILS # (AUTO) 0.1 K/uL (0.0-0.4); EOSINOPHILS % (AUTO) 1.2 % (0.0-4.0); HEMATOCRIT 35.6 % (36-48); HEMOGLOBIN 11.9 g/dL (12.0-16.0); LYMPHOCYTES % (AUTO) 58.8 % (20.5-51.5); MEAN CORPUSCULAR HEMOGLOBIN 30 pg (27-31); MEAN CORPUSCULAR HGB CONC 33 % (32-36); MEAN CORPUSCULAR VOLUME 88 fL (79.0-98.0); MONOCYTES # (AUTO) 0.5 K/uL (0.0-1.0); MONOCYTES % (AUTO) 5.7 % (1.7-9.3); NEUTROPHILS # (AUTO) 2.9 K/uL (1.8-7.7); NEUTROPHILS % (AUTO) 33.8 % (40.0-70.0); PLATELET COUNT (AUTO) 160 K/uL (130-430); RED BLOOD CELL COUNT(AUTO) 4.04 MIL/uL (4.2-6.2); RED CELL DISTRIBUTION WIDTH 15.2 % (9.0-15.0); WHITE BLOOD COUNT (AUTO) 8.5 K/uL (4.8-10.8)
[2022-09-06 08:45] LABS: ANION GAP 6 (5-15); CALCIUM 7.5 mg/dL (8.4-11.0); CHLORIDE 104 mmol/L (98-107); CREATININE 0.89 mg/dL (0.55-1.30); GLUCOSE 112 mg/dL (70-99); POTASSIUM 3.4 mmol/L (3.5-5.1); UREA NITROGEN, BLOOD 24 mg/dL (8-21)
[2022-09-06] MEDS: ATORVASTATIN 20 MG TABLET PO SCH (09:26)
[2022-09-06] MEDS: FUROSEMIDE 20 MG/2 ML VIAL IVP SCH ×2 (09:26→21:13)
[2022-09-06] MEDS: PROPRANOLOL HCL (INDERAL LA 60MG) PO SCH (09:27)
[2022-09-06] MEDS: AMIODARONE HCL 200 MG TABLET PO SCH ×2 (09:27→21:15)
--- NOTE | 2022-09-06 09:30 | NUR ---
Dr. Goss at bedside: Dr. Goss spoke to the patient for the EGD and Colonoscopy tomorrow.
[2022-09-06 09:37] VITALS: BP_SYST 112
[2022-09-06] MEDS: HYDROXYCHLOROQUINE SULFATE 200 MG TABLET PO SCH (09:50)
[2022-09-06] MEDS: METOCLOPRAMIDE HCL 10 MG/2 ML VIAL IVP SCH ×2 (09:50→18:01)
--- NOTE | 2022-09-06 12:00 | NUR ---
RN notes: Incontinent care done. Refused due med. C/o abdominal discomfort.
[2022-09-06 12:01] VITALS: BP_SYST 118
[2022-09-06 16:05] VITALS: BP_SYST 115
[2022-09-06] MEDS ORDERED: BISACODYL 5 MG TABLET.DR (DULCOLAX) PO ONE (17:00)
[2022-09-06] MEDS ORDERED: GOLYTELY / COLYTE SOLUTION 4 LITERS PO ONE (18:00)
[2022-09-06] MEDS: SERTRALINE HCL 50 MG TABLET PO SCH (18:02)
--- NOTE | 2022-09-06 18:50 | NUR ---
Closing notes: Patient resting in bed. Started Golyltely. For EGD and Colonoscopy tomorrow. Needs met throughout shift. Family at bedside. Consent signed.
[2022-09-07 00:41] VITALS: BP_SYST 123
[2022-09-07] MEDS: METOCLOPRAMIDE HCL 10 MG/2 ML VIAL IVP SCH ×3 (02:18→17:15)
[2022-09-07 07:34] LABS: BASOPHILS % (AUTO) 0.4 % (0.0-2.0); EOSINOPHILS # (AUTO) 0.1 K/uL (0.0-0.4); EOSINOPHILS % (AUTO) 1.2 % (0.0-4.0); HEMATOCRIT 35.2 % (36-48); HEMOGLOBIN 11.9 g/dL (12.0-16.0); LYMPHOCYTES # (AUTO) 4.8 K/uL (1.0-5.5); LYMPHOCYTES % (AUTO) 55.4 % (20.5-51.5); MEAN CORPUSCULAR HEMOGLOBIN 30 pg (27-31); MEAN CORPUSCULAR HGB CONC 34 % (32-36); MEAN CORPUSCULAR VOLUME 88 fL (79.0-98.0); MONOCYTES # (AUTO) 0.6 K/uL (0.0-1.0); MONOCYTES % (AUTO) 6.5 % (1.7-9.3); NEUTROPHILS # (AUTO) 3.2 K/uL (1.8-7.7); NEUTROPHILS % (AUTO) 36.5 % (40.0-70.0); PLATELET COUNT (AUTO) 171 K/uL (130-430); RED BLOOD CELL COUNT(AUTO) 4.02 MIL/uL (4.2-6.2); RED CELL DISTRIBUTION WIDTH 15.2 % (9.0-15.0); WHITE BLOOD COUNT (AUTO) 8.6 K/uL (4.8-10.8)
[2022-09-07 07:48] LABS: INR 1.1 (0.8-1.2); PROTHROMBIN TIME 11.5 SECS (9.5-12.5)
[2022-09-07 08:00] VITALS: BP_SYST 147
--- NOTE | 2022-09-07 08:00 | NUR ---
Initial Notes patient is AO4. On 2 L O2 via NC. No s.s of distress noted. Breathing is even and nonlabored. IV Patent. Denies pain. Patient remains NPO. Aware of EGD and colonoscopy scheduled today. Consents signed and in chart. Bed locked, alarm in, and at lowest position. Call light within reach.
[2022-09-07 08:10] LABS: ANION GAP 7 (5-15); CALCIUM 7.2 mg/dL (8.4-11.0); CHLORIDE 102 mmol/L (98-107); CREATININE 1.01 mg/dL (0.55-1.30); GLUCOSE 117 mg/dL (70-99); POTASSIUM 3.5 mmol/L (3.5-5.1); UREA NITROGEN, BLOOD 15 mg/dL (8-21)
[2022-09-07] MEDS ORDERED: ATORVASTATIN 20 MG TABLET PO ONE (09:00)
[2022-09-07] MEDS: PRIMIDONE 50 MG TABLET PO SCH ×3 (09:12→18:38)
[2022-09-07] MEDS: PROPRANOLOL HCL (INDERAL LA 60MG) PO SCH (09:13)
[2022-09-07] MEDS: AMIODARONE HCL 200 MG TABLET PO SCH ×2 (09:13→21:12)
[2022-09-07] MEDS: D5NS 1,000 ML IV SCH (09:14)
[2022-09-07] MEDS: HYDROXYCHLOROQUINE SULFATE 200 MG TABLET PO SCH (09:14)
--- NOTE | 2022-09-07 11:00 | NUR ---
Notes Patient left for colonoscopy and EGD.
[2022-09-07] MEDS ORDERED: MIDAZOLAM HCL 5 MG/5 ML VIAL ONE (11:10)
[2022-09-07] MEDS ORDERED: fentaNYL CITRATE/PF 100 MCG/2 ML AMP ONE (11:10)
[2022-09-07 12:25] VITALS: BP_SYST 113
--- NOTE | 2022-09-07 12:30 | NUR ---
Notes Patient back on unit. NO s.s of distress noted. On room air, breathing is even and nonlabored. VSS. IVF running. IV patent. Patient denies pain. Son at bedside. Call light within reach and Safety precautions in place. Addendum: 09/07/22 at 2003 by Monserrat Briceño LVN Notes Patient back on unit. NO s.s of distress noted. On 2L O2 NC, breathing is even and nonlabored. VSS. IVF running. IV patent. Patient denies pain. Son at bedside. Call light within reach and Safety precautions in place.
--- NOTE | 2022-09-07 13:39 | NUR ---
Patient is on service with [facility]-they called requesting an order to resume home health when discharged.
[2022-09-07] MEDS: FUROSEMIDE 20 MG/2 ML VIAL IVP SCH ×2 (13:48→21:00)
--- NOTE | 2022-09-07 16:00 | NUR ---
Notes Patient is resting, eyes closed, appears to be sleeping. No s.s of distress noted. Breathing is even and nonlabored. On 2 L O2 via NC. IVF running. IV patent. Safety precautions in place and call light within reach.
[2022-09-07 16:21] VITALS: BP_SYST 122
--- NOTE | 2022-09-07 18:30 | NUR ---
IV INSERTION NEW IV LINE STARTED ON LEFT FOREARM #22 .WITH GOOD BLOOD RETURN.FLUSHED WELL. NO S/S OF INFILTRATION NOTED. PT TOLERATED WELL. IVF INFUSING WELL. SON AT BED SIDE.
[2022-09-07] MEDS: SERTRALINE HCL 50 MG TABLET PO SCH (18:38)
--- NOTE | 2022-09-07 18:45 | NUR ---
Closing Notes. Patient is eating dinner. No s.s of distress noted. New IV patent. Flushed well. Obtained blood return. Patient denies pain. IVF running. All needs met. Safety precautions in place and call light within reach. Will endorse care to oncoming nurse.
[2022-09-07 20:54] VITALS: BP_SYST 114
[2022-09-08 00:01] VITALS: BP_SYST 118
[2022-09-08] MEDS: METOCLOPRAMIDE HCL 10 MG/2 ML VIAL IVP SCH ×2 (00:51→11:20)
[2022-09-08] MEDS: D5NS 1,000 ML IV SCH (01:25)
[2022-09-08] MEDS: PRIMIDONE 50 MG TABLET PO SCH ×2 (06:24→12:00)
[2022-09-08 06:41] LABS: BASOPHILS % (AUTO) 0.6 % (0.0-2.0); EOSINOPHILS # (AUTO) 0.1 K/uL (0.0-0.4); EOSINOPHILS % (AUTO) 1.4 % (0.0-4.0); HEMATOCRIT 35.1 % (36-48); HEMOGLOBIN 11.9 g/dL (12.0-16.0); LYMPHOCYTES # (AUTO) 4.8 K/uL (1.0-5.5); MEAN CORPUSCULAR HEMOGLOBIN 30 pg (27-31); MEAN CORPUSCULAR HGB CONC 34 % (32-36); MEAN CORPUSCULAR VOLUME 88 fL (79.0-98.0); MONOCYTES # (AUTO) 0.5 K/uL (0.0-1.0); MONOCYTES % (AUTO) 6.6 % (1.7-9.3); NEUTROPHILS # (AUTO) 2.5 K/uL (1.8-7.7); NEUTROPHILS % (AUTO) 31.4 % (40.0-70.0); PLATELET COUNT (AUTO) 161 K/uL (130-430); RED BLOOD CELL COUNT(AUTO) 4.01 MIL/uL (4.2-6.2); RED CELL DISTRIBUTION WIDTH 14.9 % (9.0-15.0)
--- NOTE | 2022-09-08 06:46 | NUR ---
PT IN BED ASLEEP. PT CLEANED AND REPOSITIONED THROUGHOUT THE NIGHT. ALL NEEDS MEET AT THIS TIME. WILL ENDORSED CARE TO DAY NURSE
[2022-09-08 07:45] LABS: ANION GAP 10 (5-15); CALCIUM 7.4 mg/dL (8.4-11.0); CHLORIDE 103 mmol/L (98-107); GLUCOSE 114 mg/dL (70-99); POTASSIUM 3.1 mmol/L (3.5-5.1); UREA NITROGEN, BLOOD 18 mg/dL (8-21)
[2022-09-08 08:00] VITALS: BP_SYST 113
--- NOTE | 2022-09-08 08:00 | NUR ---
Initial Notes Patient is eating breakfast. HOB elevated,on room air. Breathing is even and nonlabored. No s/s of distress. No SOB noted. IVF running, IV patent. Patient denies pain. Vital signs obtained, as documented. Bed locked,alarm on, and at lowest position. Call light within reach.
[2022-09-08] MEDS ORDERED: PRO40 PO (08:09)
[2022-09-08 08:27] VITALS: BP_SYST 113
[2022-09-08] MEDS ORDERED: ATORVASTATIN 20 MG TABLET PO SCH (09:00)
[2022-09-08] MEDS: HYDROXYCHLOROQUINE SULFATE 200 MG TABLET PO SCH (09:05)
[2022-09-08] MEDS: PROPRANOLOL HCL (INDERAL LA 60MG) PO SCH (09:05)
[2022-09-08] MEDS: AMIODARONE HCL 200 MG TABLET PO SCH (09:06)
--- NOTE | 2022-09-08 09:18 | NUR ---
FOLLOW UP APPOINTMENT CALLED DR JOSUE. FOLLOW UP APPOINTMENT ON Wednesday09/11/22 AT 08:45 AM. PATIENT WAS INFORMED OF APPOINTMENT
[2022-09-08] MEDS: FUROSEMIDE 20 MG/2 ML VIAL IVP SCH (11:20)
[2022-09-08 11:29] VITALS: BP_SYST 130
[2022-09-08] MEDS ORDERED: PANTOPRAZOLE SODIUM 40 MG TAB PO ONE (11:45)
--- NOTE | 2022-09-08 12:30 | NUR ---
Notes Administered Protonix PO. Primidone 175 mg PO not administered. Not available in any [facility], called pharmacy. Pharmacy to send some medication over. Patient state will take at home, wants to go home, instead of waiting.
--- NOTE | 2022-09-08 12:56 | NUR ---
Discharge Patient given medication reconciliation form and D/C instructions. Appointment made for 09/11/22at [address] JOSUE. Patient and son verbalized understanding. Exit Care provided. discussed with patient the results and treatment provided. Ambulatory with steady gait for discharge to home with home health for safety evaluation and physical therapy. Patient in stable condition, breathing is even and nonlabored on room air. Denies shortness of breath. Denies pain. Denies nausea and dizziness. ID band removed. IV catheter removed, intact and dressing applied, no active bleeding. Rx of given. Patient educated on pain management. All belongings sent with patient.
[2022-09-09] MEDS ORDERED: PANTOPRAZOLE SODIUM 40 MG TAB PO SCH (09:00)
--- NOTE | 2022-09-10 15:38 | NUR ---
Dispo code 06
== END 2022-09-08 12:45 | disposition home health service (06) | DRG 241 ==
LOC: SED 03:18 → STU 05:35
PROVIDERS: ADMIT General Practice; ATTEND General Practice
PROC: 0DB68ZX Excision of Stomach, Via Natural or Artificial Opening Endoscopic, Diagnostic (ICD-10-PCS; principal; 2022-09-07 11:00)
PROC: 0DBN8ZZ Excision of Sigmoid Colon, Via Natural or Artificial Opening Endoscopic (ICD-10-PCS; 2022-09-07 11:00)
PROC: 0DBL8ZZ Excision of Transverse Colon, Via Natural or Artificial Opening Endoscopic (ICD-10-PCS; 2022-09-07 11:00)
DX: K29.70 Gastritis, unspecified, without bleeding (principal); I50.43 Acute on chronic combined systolic (congestive) and diastolic (congestive) heart failure; E44.0 Moderate protein-calorie malnutrition; I48.20 Chronic atrial fibrillation, unspecified; E11.9 Type 2 diabetes mellitus without complications; D64.9 Anemia, unspecified; I25.10 Atherosclerotic heart disease of native coronary artery without angina pectoris; Z20.822 Contact with and (suspected) exposure to COVID-19; K21.9 Gastro-esophageal reflux disease without esophagitis; I11.0 Hypertensive heart disease with heart failure; Z96.649 Presence of unspecified artificial hip joint; M06.9 Rheumatoid arthritis, unspecified; K64.8 Other hemorrhoids; M19.90 Unspecified osteoarthritis, unspecified site; K63.5 Polyp of colon; K57.30 Diverticulosis of large intestine without perforation or abscess without bleeding; Z79.01 Long term (current) use of anticoagulants; Z95.0 Presence of cardiac pacemaker; Z90.49 Acquired absence of other specified parts of digestive tract; Z68.28 Body mass index [BMI] 28.0-28.9, adult; Z88.0 Allergy status to penicillin
CPT/HCPCS: 36415; 43239; 45380; 45385; 71045; 78264-TC; 80048; 80053; 83036; 83735; 83880; 84484; 85025; 85379; 85610-TC; 87081; 93005; 96365; 96375; 97116-GP; 97530-GP; 99285; A9541; G0378; J0696; J1940; J2250; J2765; J3010; J3490

== ENCOUNTER 2022-11-27 00:33 | Inpatient (IN) | payer MEDICARE, MEDICAID ==
[~2022-11-27] VITALS: Ht 152.4 cm; Wt 56.7 kg
[2022-11-27 00:33] VITALS: BP_SYST 127
[~2022-11-27 00:33] MED LIST changes: -APIX2.5T PO; +APIX5TAB4 PO; -FAMO20TA8 PO; -FURO-150 PO; +MULT-1117 PO; -NITR-85 PO; +PRED2.5T4 PO; +PRO40 PO; +VALS160T2 PO; +VITD2000 PO; -VITD400 PO
--- NOTE | 2022-11-27 00:54 | NUR ---
PER MD REPORT, PT WAS SEEN AT 0054.
[2022-11-27 01:42] LABS: BASOPHILS % (AUTO) 0.5 % (0.0-2.0); EOSINOPHILS # (AUTO) 0.1 K/uL (0.0-0.4); EOSINOPHILS % (AUTO) 0.9 % (0.0-4.0); HEMATOCRIT 34.1 % (36-48); HEMOGLOBIN 11.2 g/dL (12.0-16.0); LYMPHOCYTES # (AUTO) 3.5 K/uL (1.0-5.5); LYMPHOCYTES % (AUTO) 37.7 % (20.5-51.5); MEAN CORPUSCULAR HEMOGLOBIN 29 pg (27-31); MEAN CORPUSCULAR HGB CONC 33 % (32-36); MEAN CORPUSCULAR VOLUME 88 fL (79.0-98.0); MONOCYTES # (AUTO) 0.6 K/uL (0.0-1.0); MONOCYTES % (AUTO) 6.8 % (1.7-9.3); NEUTROPHILS # (AUTO) 5.1 K/uL (1.8-7.7); NEUTROPHILS % (AUTO) 54.1 % (40.0-70.0); PLATELET COUNT (AUTO) 133 K/uL (130-430); RED BLOOD CELL COUNT(AUTO) 3.87 MIL/uL (4.2-6.2); WHITE BLOOD COUNT (AUTO) 9.4 K/uL (4.8-10.8)
[2022-11-27 01:50] LABS: ANION GAP 6 (5-15); CALCIUM 7.6 mg/dL (8.4-11.0); CHLORIDE 106 mmol/L (98-107); CREATININE 0.94 mg/dL (0.55-1.30); GLUCOSE 143 mg/dL (70-99); UREA NITROGEN, BLOOD 18 mg/dL (8-21)
[2022-11-27 01:59] LABS: ALANINE AMINOTRANSFERASE 30 U/L (12-78); ASPARTATE AMINOTRANSFERASE 43 U/L (10-37); TOTAL BILIRUBIN 0.4 mg/dL (0.0-1.0)
--- NOTE | 2022-11-27 03:00 | NUR ---
PT FROM HOME WITH C/O OF COUGH AND CONGESTIONS, CP X 2DAYS. PT REPORTING FLU LIKE SYMPTOMS AND POSITIVE COVID TEST 2 DAYS AGO. PT PRESENTS WITH O2 SAT BETWEEN 90-92%.
--- NOTE | 2022-11-27 04:25 | NUR ---
PT RESTING IN BED AWAKE. PT DENIES DISCOMFORT AT THIS TIME. O2 SAT AT 98% ON 3L NC.
--- NOTE | 2022-11-27 04:29 | NUR ---
COVID SWAB COLLECTED AND SENT TO LAB.
--- NOTE | 2022-11-27 07:28 | NUR ---
REPORT GIVEN TO HELADIO SADLER TO ASSUME ALL CARE.
--- NOTE | 2022-11-27 07:30 | NUR ---
REPORT RECEIVED FROM REBEKA RN, PT WILMER. FARIDA
--- NOTE | 2022-11-27 08:08 | NUR ---
CONSULT CALLED FOR DR IRENE Frias REASON- AFIB/PNEUMONIA ORDERED BY DR BRIGHT [phone] SPOKE WITH CAROLYN
[2022-11-27] MEDS ORDERED: PROPRANOLOL HCL (INDERAL LA 60MG) PO SCH (09:00)
[2022-11-27] MEDS ORDERED: NON-FORMULARY MEDICATION (Apixaban (Eliquis) 5 MG) PO SCH (09:00)
[2022-11-27] MEDS ORDERED: PANTOPRAZOLE SODIUM 40 MG TAB PO SCH (09:00)
[2022-11-27] MEDS ORDERED: VALSARTAN 160 MG TABLET (DIOVAN) PO SCH (09:00)
[2022-11-27] MEDS ORDERED: AMIODARONE HCL 200 MG TABLET PO SCH (09:00)
--- NOTE | 2022-11-27 10:00 | NUR ---
MD DR BENTON SUGGESTED PT BE D/C, FAMILY WAS NOTIFIED AND AGREED TO TAKE HER HOME. ADMITTING MD DR BRIGHT WAS NOTIFIED AND HE SAID HE WAS GOING TO PREPARE D/C PAPERWORK.
[2022-11-27] MEDS ORDERED: LOSARTAN POTASSIUM 50 MG TABLET (COZAAR) PO ONE (10:15)
[2022-11-27] MEDS ORDERED: HYDROXYCHLOROQUINE SULFATE 200 MG TABLET PO SCH (12:00)
[2022-11-27] MEDS: PRIMIDONE 50 MG TABLET PO SCH ×2 (13:40→13:51)
[2022-11-27 14:32] VITALS: BP_SYST 111
--- NOTE | 2022-11-27 14:34 | NUR ---
Patient given written and verbal discharge instructions and verbalizes understanding. ER MD discussed with patient the results and treatment provided. Patient in stable condition. ID arm band removed. IV catheter removed intact and dressing applied, no active bleeding. Patient educated on pain management and to follow up with PMD. Opportunity for questions provided and answered. Medication side effect fact sheet provided.
[2022-11-27] MEDS ORDERED: SERTRALINE HCL 50 MG TABLET PO SCH (18:00)
[2022-11-27] MEDS ORDERED: ATORVASTATIN 20 MG TABLET PO SCH (18:00)
[2022-11-27] MEDS ORDERED: ROSUVASTATIN CALCIUM 5 MG/TAB (CRESTOR) PO SCH (18:00)
[2022-11-27] MEDS ORDERED: APIXABAN 2.5 MG TABLET PO ONE (21:00)
[2022-11-28] MEDS ORDERED: LEVOFLOXACIN 250 MG/D5W 50 ML IV SCH (07:00)
[2022-11-28] MEDS ORDERED: LOSARTAN POTASSIUM 50 MG TABLET (COZAAR) PO SCH (09:00)
== END 2022-11-27 14:34 | disposition home or self-care (01) | DRG 193 ==
LOC: SED 00:33 → STU 05:43
PROVIDERS: ADMIT Internal Medicine; ATTEND Internal Medicine
DX: J18.9 Pneumonia, unspecified organism (principal); J96.91 Respiratory failure, unspecified with hypoxia; I11.0 Hypertensive heart disease with heart failure; I50.9 Heart failure, unspecified; Z20.822 Contact with and (suspected) exposure to COVID-19; M19.90 Unspecified osteoarthritis, unspecified site; Z79.01 Long term (current) use of anticoagulants; I48.91 Unspecified atrial fibrillation; Z88.0 Allergy status to penicillin
CPT/HCPCS: 36415; 71045; 80053; 83880; 84484; 85025; 85379; 87040; 93005; 96365; 99285; G0378; J1956